=== PATIENT | male | born 1960 | race Caucasian/White ===

== ENCOUNTER 2018-06-26 17:55 | Inpatient (IN) | payer BC, OTHER ==
[~2018-06-26] VITALS: Ht 190.5 cm; Wt 154.1 kg
[~2018-06-26 17:55] MED LIST: DILT240C94 PO; FURO40TA5 PO; LISI-613 PO; MULT-1203 PO; PRED5TAB PO; ROSU10TA27 PO; SALBUTAMOL IH; TIOT18CA3 IH; UMEC1DIS IH
[2018-06-26] MEDS ORDERED: IPRATROPIUM/ALBUTEROL SULFATE 3 ML SOLUTION IH ONE (18:41)
[2018-06-26] MEDS ORDERED: METHYLPREDNISOLONE SOD SUCC 125MG/2ML VIAL ONE (18:42)
[2018-06-26 18:44] LABS: BASOPHILS % (AUTO) 0.7 % (0.0-5.0); EOSINOPHILS % (AUTO) 0.5 % (0.0-8.0); HEMATOCRIT 39.1 % (42-54); LYMPHOCYTES % (AUTO) 9.3 % (21.0-51.0); MEAN CORPUSCULAR HEMOGLOBIN 26.6 pg (27.0-33.0); MEAN CORPUSCULAR HGB CONC 32.1 g/dL (32.0-36.0); MEAN CORPUSCULAR VOLUME 82.9 fL (79-99); MONOCYTES % (AUTO) 8.5 % (3.0-13.0); NUCLEATED RED BLOOD CELLS 0.1 % (0.0-0.19); PLATELET COUNT (AUTO) 217 K/uL (130-400); RED BLOOD CELL COUNT(AUTO) 4.71 MIL/uL (4.50-6.20); RED CELL DISTRIBUTION WIDTH 16.7 % (11.0-15.5); WHITE BLOOD COUNT (AUTO) 17.6 K/uL (4.8-10.8)
[2018-06-26 19:01] LABS: CARBON DIOXIDE 30 mmol/L (21-32); CHLORIDE 102 mmol/L (101-111); CREATININE 1.4 mg/dL (0.5-1.5); GLOMERULAR FILTR. RATE CALC 55 mL/min (>60); GLUCOSE,RANDOM 141 mg/dL (70-105); POTASSIUM 3.8 mmol/L (3.5-5.1); SODIUM SERUM 139 mmol/L (136-145); UREA NITROGEN, BLOOD 14 mg/dL (7-18)
[2018-06-26 19:06] LABS: INR 1.03 (0.85-1.15); PARTIAL THROMBOPLASTIN TIME 29.2 SEC (26.3-35.5); PROTHROMBIN TIME 10.8 SEC (9.6-11.6)
[2018-06-26] MEDS ORDERED: CEFTRIAXONE SODIUM 1 GM ONE (19:07)
[2018-06-26] MEDS ORDERED: AZITHROMYCIN 250 MG TABLET PO ONE (19:07)
[2018-06-26] MEDS ORDERED: ACETAMINOPHEN EXTRA STRENGTH 500 MG TABLET ONE (19:18)
[2018-06-26 19:21] LABS: ALANINE AMINOTRANSFERASE 58 U/L (12-78); ALBUMIN 3.4 g/dL (3.5-5.0); ASPARTATE AMINOTRANSFERASE 33 U/L (10-37); BILIRUBIN,TOTAL 0.7 mg/dL (0.2-1.0); CREATINE KINASE, TOTAL 102 U/L (21-232); MYOGLOBIN 67 ng/mL (10-92); TOTAL PROTEIN, SERUM 7.8 g/dL (6.0-8.3); TROPONIN I < 0.04 ng/mL (0.00-0.06)
[2018-06-26 21:38] LABS: APPEARANCE,URINE Cloudy (CLEAR); BILIRUBIN,URINE Small (NEGATIVE); COLOR,URINE Dark Yellow (YELLOW); GLUCOSE, URINE (UA) TRACE mg/dL (NEGATIVE); KETONES,URINE Trace mg/dL (NEGATIVE); LEUKOCYTE ESTERASE ,URINE Trace (NEGATIVE); NITRATE,URINE Negative (NEGATIVE); OCCULT BLOOD,URINE Negative (NEGATIVE); PH,URINE 5.5 (5.0-8.0); PROTEIN,URINE POS 2+ (NEGATIVE)
[2018-06-26 21:49] LABS: RBC,URINE None Seen /HPF (0-1)
[2018-06-26 21:50] LABS: BACTERIA,URINE Few /HPF (None Seen); MUCUS,URINE Many LPF (None Seen); SQUAMOUS EPITHELIAL CELL,UR None Seen /HPF (0-2)
[2018-06-26] MEDS: LEVOFLOXACIN 500 MG/D5W 100 ML 100 ML IV SCH (22:15)
[2018-06-26] MEDS ORDERED: NITROGLYCERIN 0.4 MG SL TAB SL PRN (22:15)
[2018-06-26] MEDS ORDERED: ONDANSETRON HCL 4 MG/2 ML VIAL IV PRN (22:15)
[2018-06-26] MEDS ORDERED: ACETAMINOPHEN 325 MG TAB PO PRN ×2 (22:15)
[2018-06-26 22:27] LABS: HEMOGLOBIN A1C 7.4 % (4.0-6.0)
[2018-06-26] MEDS: IPRATROPIUM/ALBUTEROL SULFATE 3 ML SOLUTION IH SCH (23:05)
[2018-06-26] MEDS ORDERED: SODIUM CHLORIDE 3% FOR INHALATION 4 ML/AMP VIAL.NEB IH ONE (23:13)
[2018-06-27] VITALS (7 sets, daily range): BP systolic 122–134; BP diastolic 42–65
[2018-06-27 01:14] LABS: CREATINE KINASE, TOTAL 98 U/L (21-232); MYOGLOBIN 83 ng/mL (10-92); TROPONIN I < 0.04 ng/mL (0.00-0.06)
[2018-06-27] MEDS: IPRATROPIUM/ALBUTEROL SULFATE 3 ML SOLUTION IH SCH ×5 (01:40→22:00)
[2018-06-27] MEDS: METHYLPREDNISOLONE SOD SUCC 125MG/2ML VIAL IV SCH ×2 (02:00→07:57)
[2018-06-27] MEDS: ZOSYN 3.375GM+NS 50ML 50 ML IV SCH ×3 (04:15→20:21)
[2018-06-27] MEDS: SODIUM CHLORIDE 0.9% 1000ML 1,000 ML IV SCH ×2 (04:15→12:01)
[2018-06-27] MEDS ORDERED: ZOSYN 3.375GM+NS 50ML 50 ML IV SCH (05:00)
[2018-06-27 06:34] LABS: HEMATOCRIT 37.2 % (42-54); MEAN CORPUSCULAR HEMOGLOBIN 26.4 pg (27.0-33.0); MEAN CORPUSCULAR HGB CONC 31.7 g/dL (32.0-36.0); MEAN CORPUSCULAR VOLUME 83.2 fL (79-99); PLATELET COUNT (AUTO) 175 K/uL (130-400); RED BLOOD CELL COUNT(AUTO) 4.48 MIL/uL (4.50-6.20); RED CELL DISTRIBUTION WIDTH 17.2 % (11.0-15.5)
[2018-06-27 07:13] LABS: BILIRUBIN,TOTAL 0.3 mg/dL (0.2-1.0); CREATININE 1.4 mg/dL (0.5-1.5); POTASSIUM 4.1 mmol/L (3.5-5.1); TOTAL PROTEIN, SERUM 7.4 g/dL (6.0-8.3)
[2018-06-27 07:42] LABS: LYMPHOCYTES % (MANUAL) 4 % (22-44); MAN.DIFF COMMENT-IMPRESSION MANUAL DIFFERENTIAL; MONOCYTES % (MANUAL) 3 % (2-9); SEGMENTED NEUTROPHILS % 93 % (40-70)
[2018-06-27 07:43] LABS: PLATELET MORPHOLOGY COMMENT ADEQUATE
[2018-06-27 07:49] LABS: TROPONIN I 0.26 ng/mL (0.00-0.06)
[2018-06-27] MEDS ORDERED: ASPI-1197 PO (07:54)
[2018-06-27] MEDS ORDERED: MULT-1333 PO (07:54)
[2018-06-27] MEDS: FAMOTIDINE 20MG TAB 20 MG TAB PO SCH ×2 (07:57→20:21)
[2018-06-27] MEDS: ENOXAPARIN SODIUM 40 MG/0.4 ML SYRINGE SQ SCH (07:58)
--- NOTE | 2018-06-27 08:00 | NUR ---
ASSESSMENT PT IS AAOX4 DENIES CP DENIES SOB AT REST. DENIES NV. NO COMPLAINTS VERBALIZED AT THIS TIME. VISITOR IS AT BEDSIDE. HOME MEDS RECONCILED. CALL LIGHT WITHIN REACH.
[2018-06-27] MEDS ORDERED: IPRATROPIUM/ALBUTEROL SULFATE 3 ML SOLUTION IH PRN (10:15)
--- NOTE | 2018-06-27 15:02 | NUR ---
cm note met with patient and states resides at home with spouse, pt works electrical engineering technician. has no dme. able to do own adls, ambulation per self, no dme. states dc plan is back to [place] home setting [place] no dc needs. Addendum: 06/27/18 at 1503 by MICHELLE MARLEY CM Amended: Links added.
--- NOTE | 2018-06-27 17:00 | NUR ---
DR FUNES ROUNDED ORDERS RECEIVED
[2018-06-27] MEDS ORDERED: DEXTROSE 50%-WATER 50 ML DISP.SYRIN IV PRN (18:15)
[2018-06-27] MEDS ORDERED: GLUCAGON 1MG KIT 1 MG ML IM PRN (18:15)
[2018-06-27] MEDS: FUROSEMIDE 40 MG TABLET PO SCH (20:22)
[2018-06-27] MEDS ORDERED: ATORVASTATIN CALCIUM 10 MG TABLET PO SCH (21:00)
[2018-06-27] MEDS: INSULIN HUMULIN R 100 UNIT/ML 3ML SQ SCH (21:01)
[2018-06-27] MEDS: LEVOFLOXACIN 500 MG/D5W 100 ML 100 ML IV SCH (23:08)
[2018-06-28] MEDS: IPRATROPIUM/ALBUTEROL SULFATE 3 ML SOLUTION IH SCH ×4 (02:00→13:46)
[2018-06-28] MEDS: SODIUM CHLORIDE 0.9% 1000ML 1,000 ML IV SCH (02:40)
[2018-06-28 03:00] VITALS: BP 117/72
[2018-06-28] MEDS: METHYLPREDNISOLONE SOD SUCC 125MG/2ML VIAL IV SCH (04:14)
[2018-06-28] MEDS: ZOSYN 3.375GM+NS 50ML 50 ML IV SCH ×2 (04:14→12:39)
[2018-06-28 04:20] LABS: BASOPHILS % (AUTO) 0.1 % (0.0-5.0); HEMATOCRIT 36.5 % (42-54); LYMPHOCYTES % (AUTO) 4.6 % (21.0-51.0); MEAN CORPUSCULAR HGB CONC 32.3 g/dL (32.0-36.0); MEAN CORPUSCULAR VOLUME 83.3 fL (79-99); NEUTROPHILS % (AUTO) 90.3 % (40.0-77.0); PLATELET COUNT (AUTO) 242 K/uL (130-400); RED BLOOD CELL COUNT(AUTO) 4.38 MIL/uL (4.50-6.20); RED CELL DISTRIBUTION WIDTH 16.6 % (11.0-15.5); WHITE BLOOD COUNT (AUTO) 16.1 K/uL (4.8-10.8)
[2018-06-28 04:29] LABS: CREATININE 1.5 mg/dL (0.5-1.5); POTASSIUM 4.2 mmol/L (3.5-5.1)
[2018-06-28 07:00] VITALS: BP 125/83
[2018-06-28] MEDS: FUROSEMIDE 40 MG TABLET PO SCH (07:56)
[2018-06-28] MEDS: FAMOTIDINE 20MG TAB 20 MG TAB PO SCH (07:57)
[2018-06-28] MEDS: INSULIN HUMULIN R 100 UNIT/ML 3ML SQ SCH ×2 (08:00→11:10)
--- NOTE | 2018-06-28 08:00 | NUR ---
ASSESSMENT PT IS AAOX3 DENIES CP DENIES SOB DENIES NV NO COMPLAINTS. SITTING UPRIGHT IN BED. CALL LIGHT WITHIN REACH, VISITORS AT BEDSIDE.
[2018-06-28] MEDS: ENOXAPARIN SODIUM 40 MG/0.4 ML SYRINGE SQ SCH (08:01)
[2018-06-28] MEDS ORDERED: DILTIAZEM HCL 120 MG CAP.SR.24H PO SCH (09:00)
[2018-06-28] MEDS ORDERED: LISINOPRIL 20 MG TABLET PO SCH (09:00)
[2018-06-28] MEDS ORDERED: ASPIRIN 81MG TAB.CHEW PO SCH (09:00)
[2018-06-28] MEDS ORDERED: MULTIVITAMIN WITH MINERALS TABLET PO SCH (09:00)
[2018-06-28] MEDS ORDERED: METHYLPREDNISOLONE SOD SUCC 125MG/2ML VIAL IV SCH (10:00)
[2018-06-28 11:00] VITALS: BP 144/72
--- NOTE | 2018-06-28 11:00 | NUR ---
[facility] AIDE ROUNDED ORDERS RECEIVED
[2018-06-28 16:00] VITALS: BP 145/83
[2018-06-28] MEDS ORDERED: LEVO500T2 PO (16:52)
--- NOTE | 2018-06-28 17:35 | NUR ---
DISCHARGE TO HOME PT AND FAMILY VERBALIZE DC INSTRUCTIONS UNDERSTANDING AGREE TO TAKE MEDICATIONS ORDERED. AGREE TO FOLLOW UP WITH PRIMARY MD. ALL QUESTIONS ANSWERED. PIV REMOVED CATH TIP INTACT, TELE PACK REMOVED. DOWN VIA WC TO VEHICLE.
== END 2018-06-28 17:30 | disposition home or self-care (01) | DRG 871 ==
LOC: EDH 17:55 → EDHIP 22:05 → 2DH 23:45
PROVIDERS: ADMIT Internal Medicine; ATTEND Internal Medicine
DX: A41.9 Sepsis, unspecified organism (principal); J18.9 Pneumonia, unspecified organism; J44.0 Chronic obstructive pulmonary disease with (acute) lower respiratory infection; I50.32 Chronic diastolic (congestive) heart failure; E66.2 Morbid (severe) obesity with alveolar hypoventilation; J44.1 Chronic obstructive pulmonary disease with (acute) exacerbation; J98.11 Atelectasis; Z68.41 Body mass index [BMI] 40.0-44.9, adult; I11.0 Hypertensive heart disease with heart failure; E11.9 Type 2 diabetes mellitus without complications; E78.5 Hyperlipidemia, unspecified; I25.2 Old myocardial infarction; Z82.0 Family history of epilepsy and other diseases of the nervous system; Z80.7 Family history of other malignant neoplasms of lymphoid, hematopoietic and related tissues
CPT/HCPCS: 36415; 71045; 71250; 80048; 80053; 80061; 81001; 82550; 82948; 83036; 83605; 83735; 83874; 83880; 84484; 85025; 85610; 85730; 87040; 87071; 87088; 87205; 87486; 87581; 87633; 87798; 87804; 93005; 94640; 94664; G0378; J0696; J1650; J1815; J1956; J2543; J2930; J7030

== ENCOUNTER 2020-06-15 06:36 | Day surgery (SDC) | payer OTHER ==
[2020-06-13 12:15] VITALS: BP_SYST 166; BP_SYST 174; BP_DIAS 75; BP_DIAS 77
[2020-06-13 12:40] LABS: BASOPHILS % (AUTO) 0.4 % (0.0-5.0); EOSINOPHILS % (AUTO) 2.2 % (0.0-8.0); HEMATOCRIT 44.8 % (42-54); LYMPHOCYTES % (AUTO) 23.2 % (21.0-51.0); MEAN CORPUSCULAR HEMOGLOBIN 26.8 pg (27.0-33.0); MEAN CORPUSCULAR HGB CONC 31.3 g/dL (32.0-36.0); MEAN CORPUSCULAR VOLUME 85.7 fL (79-99); MONOCYTES % (AUTO) 9.1 % (3.0-13.0); PLATELET COUNT (AUTO) 206 K/uL (130-400); RED BLOOD CELL COUNT(AUTO) 5.23 MIL/uL (4.50-6.20); RED CELL DISTRIBUTION WIDTH 14.7 % (11.0-15.5); WHITE BLOOD COUNT (AUTO) 6.7 K/uL (4.8-10.8)
[2020-06-13 12:49] LABS: INR 1.07 (0.85-1.15); PROTHROMBIN TIME 11.6 SEC (9.6-11.6)
[2020-06-13 12:50] LABS: PARTIAL THROMBOPLASTIN TIME 29.9 SEC (26.3-35.5)
[2020-06-13 12:51] LABS: CREATININE 1.2 mg/dL (0.5-1.5)
[2020-06-15] VITALS (10 sets, daily range): BP systolic 109–153; BP diastolic 57–80
[~2020-06-15] VITALS: Ht 190.5 cm; Wt 153.6 kg
[~2020-06-15 06:36] MED LIST changes: +AEC81 PO; +CEFAZOLIN SODIUM 1 GM VIAL IVP SCH; +CLOP75TA14 PO; -DILT240C94 PO; +DIPH-704 PO; +FOLI0.8T22 PO; -LISI-613 PO; +LOSA100T58 PO; +METO-409 PO; -MULT-1203 PO; +MULT-1333 PO; +POTA20TA82 PO; -PRED5TAB PO; -ROSU10TA27 PO; -SALBUTAMOL IH; +SODIUM CHLORIDE 0.9% 1000ML 1,000 ML IV SCH; -TIOT18CA3 IH; +VANCOMYCIN 1GM+NS 250ML 250 ML IV SCH
[2020-06-15] MEDS ORDERED: ATOR-2 PO (07:36)
[2020-06-15] MEDS ORDERED: VITAMIN D PO (07:36)
[2020-06-15] MEDS ORDERED: BUPIVACAINE/PF 0.25% 30ML VIAL IJ ONE (08:57)
[2020-06-15] MEDS ORDERED: LIDOCAINE HCL 1% MDV 50ML VIAL ONE (08:57)
[2020-06-15] MEDS ORDERED: CEFAZOLIN SODIUM 1 GM VIAL ONE (08:57)
[2020-06-15] MEDS ORDERED: MIDAZOLAM HCL 1 MG/ML 2ML VIAL ONE ×4 (08:57→10:10)
[2020-06-15] MEDS ORDERED: MEPERIDINE-PF 50 MG/ML SYG ONE (08:57)
[2020-06-15] MEDS ORDERED: IODIXANOL 320 MG/ML 100 ML VIAL ONE (09:16)
[2020-06-15] MEDS ORDERED: MEPERIDINE-PF 25 MG/ML SYG ONE ×2 (09:26→10:10)
[2020-06-15] MEDS ORDERED: TRAM50TA4 PO (11:10)
[2020-06-15] MEDS ORDERED: ACETAMINOPHEN-CODEINE 300/30MG TAB PO PRN (11:15)
== END 2020-06-15 16:00 | disposition home or self-care (01) ==
LOC: DAH 06:36
PROVIDERS: ATTEND Internal Medicine Cardiovascular Disease
DX: I44.7 Left bundle-branch block, unspecified (principal); I25.5 Ischemic cardiomyopathy; I11.0 Hypertensive heart disease with heart failure; I50.42 Chronic combined systolic (congestive) and diastolic (congestive) heart failure; J44.9 Chronic obstructive pulmonary disease, unspecified; G47.33 Obstructive sleep apnea (adult) (pediatric); E66.9 Obesity, unspecified; I25.2 Old myocardial infarction; E78.5 Hyperlipidemia, unspecified; Z79.82 Long term (current) use of aspirin; Z87.01 Personal history of pneumonia (recurrent); Z98.890 Other specified postprocedural states; Z79.01 Long term (current) use of anticoagulants; Z68.41 Body mass index [BMI] 40.0-44.9, adult
CPT/HCPCS: 33225; 33249; 36415; 71045; 80048; 85025; 85610; 85730; 93005; A4215; A4216; A4221; A4222; A4223 ×3; A4606; A4663; C1769 ×2; C1882; C1895; C1896; C1900; J0690; J2175 ×3; J2250 ×4; J3490 ×2; J7030; Q9967; 99156; 99157

== ENCOUNTER → 2020-10-13 | Outpatient (CLI) | payer OTHER ==
[~2020-10-13] MED LIST changes: +ATOR-2 PO; -CEFAZOLIN SODIUM 1 GM VIAL IVP SCH; -SODIUM CHLORIDE 0.9% 1000ML 1,000 ML IV SCH; +TRAM50TA4 PO; -UMEC1DIS IH; -VANCOMYCIN 1GM+NS 250ML 250 ML IV SCH; +VITAMIN D PO
== END | disposition home or self-care (01) ==
LOC: SHCH 15:00
PROVIDERS: ATTEND Internal Medicine
DX: I10 Essential (primary) hypertension (principal); I44.7 Left bundle-branch block, unspecified
CPT/HCPCS: 93306; 93356

== ENCOUNTER → 2024-03-29 | Outpatient (CLI) | payer OTHER ==
[~2024-03-29] MED LIST changes: +CLOP-31 PO; -CLOP75TA14 PO; -LOSA100T58 PO; +LOSA100T59 PO; +POTA-202 PO; -POTA20TA82 PO
[2024-03-29] MEDS: REGADENOSON 0.4 MG/5 ML PF SYG IVP ONE (11:32)
== END | disposition home or self-care (01) ==
LOC: SHCH 08:25
PROVIDERS: ATTEND Internal Medicine
DX: I25.10 Atherosclerotic heart disease of native coronary artery without angina pectoris (principal)
CPT/HCPCS: 78452; 93017; J2785; A9500 ×2